=== PATIENT | male | born 1950 | race Caucasian/White ===

== ENCOUNTER → 2017-12-01 | Outpatient (CLI) | payer OTHER ==
[~2017-12-01] MED LIST: ALLO100T PO; ASPI81TA23 PO; BEDSIDE COMMODE1 MI1; CALCTAB33 PO; CINN500C2 PO; D31000CA3 PO; DOCU100C15 PO; FELO5TAB PO; FINA5TAB2 PO; GLIM2TAB PO; HYDR-2768 PO; HYDR-3580 PO; HYDR25TA5 PO; LOSA50TA PO; METO25 PO; METO25TA3 PO; MULTTAB4 PO; PRAV20TA2 PO; TAMS5CAP PO; TURM500C7 PO; WALKER WHEELS/F1 MIS
== END ==
LOC: CPRE 11:40
PROVIDERS: ATTEND Orthopaedic Surgery Orthopaedic Surgery of the Spine
DX: Z01.810 Encounter for preprocedural cardiovascular examination (principal); Z01.812 Encounter for preprocedural laboratory examination; M16.9 Osteoarthritis of hip, unspecified

== ENCOUNTER 2017-12-08 09:28 | Inpatient (IN) | payer OTHER, MEDICARE ==
[~2017-12-08] VITALS: Ht 177.8 cm; Wt 129.0 kg
[~2017-12-08 09:28] MED LIST changes: -BEDSIDE COMMODE1 MI1; -DOCU100C15 PO; -FELO5TAB PO; -HYDR-2768 PO; -HYDR-3580 PO; -METO25 PO; -WALKER WHEELS/F1 MIS
[2017-12-08] MEDS ORDERED: SODIUM CHLORID 0.9% 500 ML IV PRN (10:30)
[2017-12-08] MEDS ORDERED: CHLORHEXIDINE GLUCONATE 4% SOLN 120 ML BTL TOPICAL SCH (10:30)
[2017-12-08] MEDS ORDERED: INSULIN HUMAN REGULAR 1,000 UNITS/10 ML VIAL SQ PRN (10:30)
[2017-12-08] MEDS ORDERED: LACTATED RINGER'S 1000 ML IV PRN (10:30)
[2017-12-08] MEDS ORDERED: METOPROLOL TARTRATE 25 MG TAB PO PRN (10:30)
[2017-12-08] MEDS ORDERED: POVIDONE IODINE 5% (ANTISEPSIS KIT) 4 APPLICATIONS EACH NARE PRN (10:30)
[2017-12-08] MEDS ORDERED: VANCOMYCIN 1000 MG/NS 250 ML (for <70 kg) IV SCH ×2 (10:30)
[2017-12-08] MEDS ORDERED: ceFAZolin 2 GM PREMIX 50 ML IV SCH (10:30)
[2017-12-08] MEDS ORDERED: CHLORHEXIDINE GLUCONATE 2 % 1 PACK (2 CLOTHS) TOPICAL PRN (10:30)
[2017-12-08] MEDS ORDERED: ceFAZolin INJ 1,000 MG VIAL ONE (11:49)
[2017-12-08] MEDS ORDERED: GENTAMICIN SULFATE 80 MG/2 ML VIAL ONE (11:50)
[2017-12-08] MEDS ORDERED: GLYCOPYRROLATE 1 MG/5 ML SYRINGE IV PUSH ONE (12:00)
[2017-12-08] MEDS ORDERED: PHENYLEPH/NS 1000 MCG/10 ML SYR IV ONE (12:00)
[2017-12-08] MEDS ORDERED: ONDANSETRON HCL 4 MG/2 ML VIAL IV ONE (12:00)
[2017-12-08] MEDS ORDERED: LACTATED RINGER'S 1000 ML INJ 1,000 ML IV ONE (12:00)
[2017-12-08] MEDS ORDERED: PROPOFOL 200 MG/20 ML AMP IV ONE (12:00)
[2017-12-08] MEDS ORDERED: NEOSTIGMINE 5 MG/5 ML SYRINGE IV PUSH ONE (12:00)
[2017-12-08] MEDS ORDERED: ePHEDrine/NS 25 MG/5 ML SYRINGE IV ONE (12:00)
[2017-12-08] MEDS ORDERED: ROCURONIUM INJ 50 MG/5 ML SYRINGE IV PUSH ONE (12:00)
[2017-12-08] MEDS ORDERED: LIDOCAINE HCL 1% PF 5 ML SYRINGE OTHER ONE (12:00)
[2017-12-08] MEDS ORDERED: ACETAMINOPHEN 1000 MG/100 ML 100 ML IV ONE (12:45)
[2017-12-08] MEDS ORDERED: ONDANSETRON HCL 4 MG/2 ML VIAL IVP PRN (16:00)
[2017-12-08] MEDS ORDERED: Post-op Orders (for Pharmacy) XX ONE (16:00)
[2017-12-08] MEDS ORDERED: ACETAMINOPHEN/HYDROcodone 325 MG/7.5 MG TAB PO PRN (16:00)
[2017-12-08] MEDS ORDERED: ALUMINUM/MAGNESIUM/SIMETH 30 ML CUP PO PRN (16:00)
[2017-12-08] MEDS ORDERED: DO NOT ADM ANY ANTICOAGULANT DRUGS PRN (16:06)
[2017-12-08] MEDS ORDERED: BEDSIDE COMMODE1 MI1 (16:07)
[2017-12-08] MEDS ORDERED: WALKER WHEELS/F1 MIS (16:07)
[2017-12-08] MEDS ORDERED: MIDAZOLAM HCL 2 MG/2 ML VIAL ONE (16:07)
--- NOTE | 2017-12-08 16:09 | HHI.FF ---
Face to Face Verification Diagnosis: (1) Osteoarthritis of left hip Physical Therapy Gait training, Transfer training, bed to chair Hip: Total hip, Protocol: Left, Posterior hip precautions Right LE Weight Bearing: WB as tolerated Left LE Weight Bearing: WB as tolerated Nursing RN Days per Week: 3 x Week(s): 4 Nursing: Dressing changes (clean with alcohol and apply dry, sterile dressing ) Additional Instructions Aspirin 81 mg BID x 4 weeks for DVT prop I have seen patient Javier Baez on 12/08/17. My clinical findings support the need for the requested home health care services because: Deconditioned w/ increased weakness I certify that my clinical findings support that this patient is homebound because: Post-op weakness Jarrett Key MD Dec 08, 2017 16:09
[2017-12-08] MEDS ORDERED: PILL SPLITTER OTHER PRN (16:15)
[2017-12-08] MEDS ORDERED: *morphine SULFATE 10 MG/ML PERIprocedure ONLY ONE (16:45)
[2017-12-08] MEDS: LACTATED RINGER'S 1000 ML INJ 1,000 ML IV SCH (16:45)
--- NOTE | 2017-12-08 16:45 | RADRPT ---
EXAM DATE/TIME: 12/08/2017 16:19 [facility] COMPARISON: No previous studies available for comparison. INDICATIONS : Evaluate hardware placement left hip MEDICAL HISTORY : Arthritis. SURGICAL HISTORY : None. ENCOUNTER: Initial ACUITY: 1 day PAIN SCORE: 0/10 LOCATION: Left Hip FINDINGS: The pelvis itself is intact. There is a left total hip prosthesis arthroplasty in place well-seated w ith no dislocation. CONCLUSION: Left hip prosthesis in place well seated. Otherwise negative Donald Lim MD on December 08, 2017 at 16:42 Board Certified Radiologist. This report was verified electronically.
[2017-12-08] MEDS ORDERED: RESP: ALBUTEROL 2.5 MG/IPRATROPIUM 0.5 MG NEB (PRN) NEB (17:45)
--- NOTE | 2017-12-08 17:49 | PD.CONS ---
HPI Service [facility] Consult Requested By Orthopedic surgery Reason for Consult Medical management Primary Care Physician Matteo Solano MD Diagnoses: History of Present Illness 67 year-old man with a history of diabetes type 2, hypertension, severe left hip osteoarthritis who despite medical management including corticosteroid injection,NSAIDs and physical therapy continue to have severe left hip pain affecting his daily living of activity, including ambulation's was taking to the operating room today and underwent left hip replacement by orthopedic surgery. Patient was seen postoperatively in PACU, and denies any chest pain or shortness of breath. Vitals stable Review of Systems Except as stated in HPI: all other systems reviewed are Neg Past Family Social History Allergies: Coded Allergies: No Known Allergies (Verified Allergy, Unknown, 12/08/17) Past Medical History Left severe hip osteoarthritis Diabetes type 2 Hypertension Hyperlipidemia History of colon cancer Past Surgical History Left hip arthroplasty 12/08/17 Colostomy reversal Reported Medications Amaryl 2 mg daily Cozaar 50 mg daily Lopressor 12.5 mg twice a day Allopurinol Pravachol 20 mg at bedtime Flomax 0.4 mg daily Family History Noncontributory Social History Patient denies tobacco, alcohol or illicit drug intake Physical Exam Vital Signs Vital Signs Date Time Temp Pulse Resp B/P (MAP) Pulse Ox O2 Delivery O2 Flow Rate FiO2 12/08/17 16:06 97.4 74 16 124/78 (93) 100 Nasal Cannula 2 12/08/17 10:09 98.5 68 20 127/86 (100) 95 Physical Exam GENERAL: This is a well-nourished, well-developed patient, in no apparent distress. SKIN: No rashes, ecchymoses or lesions. Cool and dry. HEAD: Atraumatic. Normocephalic. No temporal or scalp tenderness. EYES: Pupils equal round and reactive. Extraocular motions intact. No scleral icterus. No injection or drainage. ENT: Nose without bleeding, purulent drainage or septal hematoma. Throat without erythema, tonsillar hypertrophy or exudate. Uvula midline. Airway patent. NECK: Trachea midline. No JVD or lymphadenopathy. Supple, nontender, no meningeal signs. CARDIOVASCULAR: Regular rate and rhythm without murmurs, gallops, or rubs. RESPIRATORY: Clear to auscultation. Breath sounds equal bilaterally. No wheezes , rales, or rhonchi. GASTROINTESTINAL: Abdomen soft, non-tender, nondistended. No hepato-splenomegaly , or palpable masses. No guarding. MUSCULOSKELETAL: Extremities without clubbing, cyanosis, or edema. Left hip repair, in brace-neurovascular intact NEUROLOGICAL: Awake and alert. Cranial nerves II through XII intact. Motor and sensory grossly within normal limits. Five out of 5 muscle strength in all muscle groups. Normal speech. Imaging Last Impressions Hip and Pelvis X-Ray 12/08/17 0000 Signed Impressions: Service Date/Time: Friday, December 08, 2017 16:19 - CONCLUSION: Left hip prosthesis in place well seated. Otherwise negative Donald Lim MD Assessment and Plan Assessment and Plan 67 year-old man with Left severe Hip osteoarthritis Status post left hip arthroplasty 12/08/17 Management per orthopedic surgery Continue current postop care including parenteral pain management. Monitor CBC in a.m. PT consult to treat and eval DVT prophylaxis per orthopedic surgery History of diabetes type 2 Continue Amaryl 2 mg daily Hypertension Continue Cozaar 50 mg daily, Lopressor 12.5 mg twice a day Monitor BMP in a.m. Hyperlipidemia On Pravachol 20 mg at bedtime Monitor LFTs in a.m. BPH Resume Flomax 0.4 mg daily DVT prophylaxis: Per orthopedic surgery Thank you for this consultation Code Status Full code Discussed Condition With Patient, PACU nurse Lamonte Cole MD Dec 08, 2017 17:48
--- NOTE | 2017-12-08 18:39 | HHI.PR ---
Immediate Post Op Note Procedure Date: Dec 08, 2017 Pre Op Diagnosis: L Hip OA Post Op Diagnosis: Same Surgeon: Jarrett Key MD Land Surveyor Assistant(s): Guerline Celeste PA-C Procedure: L THR Complications: None Specimen(s) removed: None Estimated blood loss: 400 cc Anesthesia: General Drains: None Patient to: PACU Implant/Devices: SEE IMPLANT LOG (if applicable) Date/Time of Procedure: SEE SURGICAL CARE RECORD Jarrett Key MD Dec 08, 2017 18:39
[2017-12-08 20:00] VITALS: BP 84/64; PULSE 98; RESP 15; TEMP 95.9; O2SAT 92
[2017-12-08] MEDS ORDERED: ASPIRIN EC 81 MG TABEC PO ONE (20:00)
[2017-12-08 20:18] VITALS: O2SAT 99
[2017-12-08] MEDS ORDERED: ZOLPIDEM TARTRATE 5 MG TAB PO PRN (21:00)
[2017-12-08] MEDS: METOPROLOL TARTRATE 25 MG TAB PO SCH (21:00)
[2017-12-08] MEDS ORDERED: ALLOPURINOL 100 MG TAB PO SCH (21:00)
[2017-12-08] MEDS ORDERED: PRAVASTATIN SOD 20 MG TAB PO SCH (21:00)
[2017-12-09] VITALS: BP 115/58; PULSE 99; RESP 15; TEMP 96.8; O2SAT 94
[2017-12-09 04:00] VITALS: BP 99/67; PULSE 100; RESP 15; TEMP 95.4; O2SAT 95
[2017-12-09] MEDS: LACTATED RINGER'S 1000 ML INJ 1,000 ML IV SCH (04:12)
[2017-12-09] MEDS: ACETAMINOPHEN/HYDROcodone 325 MG/7.5 MG TAB PO PRN ×2 (06:56→11:14)
--- NOTE | 2017-12-09 07:03 | PD.ORT.PN ---
Subjective Subjective Remarks POD#1 L THR Patient comfortablNo SOB;no chest pain Objective Vitals Vital Signs Date Time Temp Pulse Resp B/P (MAP) Pulse Ox O2 Delivery O2 Flow Rate FiO2 12/09/17 00:00 96.8 99 15 115/58 (77) 94 12/08/17 20:18 99 12/08/17 20:00 95.9 98 15 84/64 (71) 92 12/08/17 17:30 68 16 115/57 (76) 99 Room Air 12/08/17 17:00 60 16 128/61 (83) 98 Room Air 12/08/17 16:45 66 16 137/60 (85) 98 Room Air 12/08/17 16:30 62 16 108/58 (75) 100 12/08/17 16:15 66 16 116/60 (78) 100 Nasal Cannula 2 12/08/17 16:06 97.4 74 16 124/78 (93) 100 Nasal Cannula 2 12/08/17 10:09 98.5 68 20 127/86 (100) 95 I/O 12/08/17 12/08/17 12/08/17 12/09/17 12/09/17 12/09/17 07:00 15:00 23:00 07:00 15:00 23:00 Intake Total 1700 ml 1194 ml Output Total 1075 ml Balance 625 ml 1194 ml Intake IV Total 1700 ml 1194 ml Output Urine Total 675 ml Estimated Blood Loss 400 ml Objective Remarks N/V intact Neg tawnya's sign;no calf tenderness Dressings dry No LLD Assessment & Plan Assessment and Plan Ortho stable Discharge home today EC Aspirin 81 mg BIDx4 weeks,TEDS,Sequentials for DVT prophylaxsis PT,Rehab Jarrett Key MD Dec 09, 2017 07:03
[2017-12-09 07:50] VITALS: BP 100/67; PULSE 110; RESP 18; TEMP 98.2; O2SAT 93
[2017-12-09 08:56] LABS: HEMATOCRIT 35.9 % (39.0-51.0)
[2017-12-09] MEDS ORDERED: HYDROCHLOROTHIAZIDE 25 MG TAB PO SCH (09:00)
[2017-12-09] MEDS ORDERED: TAMSULOSIN HCL 0.4 MG CAP PO SCH (09:00)
[2017-12-09] MEDS ORDERED: ASPIRIN EC 81 MG TABEC PO SCH ×2 (09:00)
[2017-12-09] MEDS ORDERED: GLIMEPIRIDE 2 MG TAB PO SCH (09:00)
[2017-12-09] MEDS: METOPROLOL TARTRATE 25 MG TAB PO SCH (09:00)
[2017-12-09] MEDS ORDERED: FINASTERIDE 5 MG TAB PO SCH (09:00)
[2017-12-09] MEDS ORDERED: LOSARTAN 50 MG TAB PO SCH (09:00)
[2017-12-09 09:25] LABS: ALBUMIN 3.4 GM/DL (3.4-5.0); AST (GOT) 13 U/L (15-37); BICARBONATE 20.3 MEQ/L (21.0-32.0); BLOOD UREA NITROGEN 29 MG/DL (7-18); CALCIUM 8.5 MG/DL (8.5-10.1); CHLORIDE 101 MEQ/L (98-107); CREATININE 1.75 MG/DL (0.60-1.30); GLOMERULAR FILTRATION RATE 39 ML/MIN (>89); GLUCOSE,RANDOM 213 MG/DL (74-106); SODIUM (NA) 134 MEQ/L (136-145)
[2017-12-09 09:26] LABS: ALT (GPT) 16 U/L (12-78)
[2017-12-09 09:28] LABS: ALKALINE PHOSPHATASE 73 U/L (45-117); TOTAL BILIRUBIN ADULT 1.3 MG/DL (0.2-1.0); TOTAL PROTEIN 7.1 GM/DL (6.4-8.2)
[2017-12-09 11:21] VITALS: O2SAT 94
--- NOTE | 2017-12-09 11:50 | HHI.PR ---
Subjective Remarks Doing well postop. Orthopedic Surgery has cleared patient for discharge. Patient has no new complaints. Objective Vital Signs Date Time Temp Pulse Resp B/P (MAP) Pulse Ox O2 Delivery O2 Flow Rate FiO2 12/09/17 11:21 94 21 12/09/17 07:56 16 12/09/17 07:50 98.2 110 18 100/67 (78) 93 12/09/17 04:00 95.4 100 15 99/67 (78) 95 12/09/17 00:00 96.8 99 15 115/58 (77) 94 12/08/17 20:18 99 12/08/17 20:00 95.9 98 15 84/64 (71) 92 12/08/17 17:30 68 16 115/57 (76) 99 Room Air 12/08/17 17:00 60 16 128/61 (83) 98 Room Air 12/08/17 16:45 66 16 137/60 (85) 98 Room Air 12/08/17 16:30 62 16 108/58 (75) 100 12/08/17 16:15 66 16 116/60 (78) 100 Nasal Cannula 2 12/08/17 16:06 97.4 74 16 124/78 (93) 100 Nasal Cannula 2 I/O 12/08/17 12/08/17 12/08/17 12/09/17 12/09/17 12/09/17 07:00 15:00 23:00 07:00 15:00 23:00 Intake Total 1700 ml 1914 ml Output Total 1075 ml Balance 625 ml 1914 ml Intake Oral 720 ml IV Total 1700 ml 1194 ml Output Urine Total 675 ml Estimated Blood Loss 400 ml # Voids 3 Result Diagram: 12/09/1718 12/09/17 0718 Objective Remarks GENERAL: NAD, A&Ox3 HEAD: Normocephalic. NECK: Supple, trachea midline. No lymphadenopathy. EYES: No scleral icterus. No injection or drainage. CARDIOVASCULAR: Regular rate and rhythm without murmurs, gallops, or rubs. RESPIRATORY: Breath sounds equal bilaterally. No accessory muscle use. GASTROINTESTINAL: Abdomen soft, non-tender, nondistended. MUSCULOSKELETAL: No cyanosis, or edema. Bandage at left hip SKIN: Warm and dry. NEURO: No focal neurological deficitis. A/P Problem List: (1) Osteoarthritis of left hip ICD Code: M16.12 - Unilateral primary osteoarthritis, left hip Assessment and Plan 67 year-old man admitted secondary to left hip osteoarthritis, now status post left hip arthroplasty Status post left hip arthroplasty Osteoarthritis Continue pain treatments as needed Continue PT as an outpatient Medically clear for discharge Hemoglobin level has been stable Outpatient follow-up with orthopedics Diabetes mellitus type 2 Resume home treatments at discharge Hypertension Continue Cozaar 50 mg daily Lopressor 12.5 mg twice a day Hyperlipidemia Pravachol 20 mg at bedtime Follow LFTs as an outpatient BPH Flomax 0.4 mg daily DVT prophylaxis Per orthopedic surgery Discharge planning Medically clear for discharge Problem Qualifiers (1) Osteoarthritis of left hip: Qualified Codes: M16.12 - Unilateral primary osteoarthritis, left hip Keny Sosa MD Dec 09, 2017 11:50
[2017-12-09] MEDS ORDERED: DOCU100C15 PO (11:53)
[2017-12-09] MEDS ORDERED: HYDR-3580 PO (11:53)
[2017-12-09 11:55] VITALS: BP 98/56; PULSE 104; RESP 18; TEMP 97.4; O2SAT 93
--- NOTE | 2017-12-09 14:25 | MP ---
cc: FRANK PATTON,GRACE Butler M.D. DATE OF SURGERY December 08, 2017 PREOPERATIVE DIAGNOSES 1. Left hip severe osteoarthritis. 2. Morbid obesity. POSTOPERATIVE DIAGNOSES 1. Left hip severe osteoarthritis. 2. Morbid obesity. PROCEDURE Left total hip arthroplasty. SURGEON Zain Key MD ASSESSMENT Guerline Celeste PA-C ANESTHESIA General. ESTIMATED BLOOD LOSS 400 cc COMPLICATIONS None. DRAINS None. PLAN OF ACTIVITIES See chart. SPECIMEN None. PROCEDURE My delinquent tax collection assistant, Guerline Celeste PA-C, was present for the entire surgical case. She was medically necessary for the entire case because of the complexity of the case and to facilitate the performance of the procedure. The SENIOR WIND TURBINE TECHNICIAN at the back table was not of the skill set for this case, to manipulate the instruments e.g. the multiple different types of soft tissue retractors, trial implants and permanent implants. The patient was brought into the operating room and had satisfactory general endotracheal anesthesia by Dr. Amaury Medeiros of the Department of Anesthesia. The patient was placed in the lateral decubitus position. Because of the patient's morbid obesity, great care was taken to protect all pressure points. The left hip and lower extremity were prepped and draped in the usual sterile manner. Posterior lateral exposure to the hip was made. All bleeders were coagulated. Dissection was carried through the skin and subcutaneous tissue. The fascia keli and gluteus jose was incised in line with the skin incision. A Charnley retractor was placed into the wound in order to allow better exposure. Great care was taken to protect the sciatic nerve throughout the entire operative procedure. The short external rotators starting from the piriformis tendon, superior and inferior glamellui muscles, obturator internus and quadriceps femoris tendons were then removed off of the posterior aspect of the hip. Capsulotomy was performed. The hip was then dislocated posteriorly. Osteotomy was made on the neck at the appropriate level. Exposure of the acetabulum was made. The hip capsule and labrum was surgically excised. Using the hemispherical reamers, the acetabulum was repaired. Using hemispherical reamers, reamed sequentially up to 55 mm in outer diameter. The 55 mm trial bicentric cup was placed in Press-Fit type manner, found to be stable and satisfactory. 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 Rongeur and curved osteotomes were then used to remove the osteophytes off the acetabulum. Attention was now turned to the femur. Using the Biomet Taperloc system, it was sequentially broached to a #14 broach. Trial reduction was made with a standard-offset, 0 neck, 28-mm ball. The hip was reduced. The patient was found to have satisfactory limb length, satisfactory stability and satisfactory and improved range of motion. The hip was then again dislocated posteriorly. All trial components were removed and preparation was made for insertion of the implant. Using the Biomet Taperloc stem in approximately 15 degrees anteversion, 14 standard offset was then placed in satisfactory position with an excellent "fit and fill". A 0-neck, 28-mm ball was then assembled onto the trunnion. The hip was again reduced. Again the patient was found to have satisfactory limb length, satisfactory stability and satisfactory range of motion. The wound was irrigated with copious amounts of sterile saline antibiotic solution. The short external rotators were repaired back to the greater trochanter with drill holes using #2 Ticron suture. The fascia keli and gluteus jose was closed in line with #2 Ticron sutures. The subcutaneous tissue was closed in layers with 0 Vicryl and 2-0 Vicryl. The skin was approximated with running subcuticular 2-0 nylon stitch. Sterile dressings were applied. The patient tolerated the procedure well and arrived in the recovery room in stable and satisfactory condition. MD FÉLIX Ulloa/JOSE /3:46 PM /9:20 AM
[2017-12-09] MEDS ORDERED: DOCUSATE SODIUM 100 MG CAP PO SCH (21:00)
== END 2017-12-09 14:20 | disposition home health service (06) | DRG 470 ==
LOC: HSDI 09:28 → N06B 18:21
PROVIDERS: ADMIT Orthopaedic Surgery Orthopaedic Surgery of the Spine; ATTEND Orthopaedic Surgery Orthopaedic Surgery of the Spine
PROC: 0SRB0JA Replacement of Left Hip Joint with Synthetic Substitute, Uncemented, Open Approach (ICD-10-PCS; principal; 2017-12-08 13:41)
DX: M16.12 Unilateral primary osteoarthritis, left hip (principal); E66.01 Morbid (severe) obesity due to excess calories; I10 Essential (primary) hypertension; E11.9 Type 2 diabetes mellitus without complications; E78.5 Hyperlipidemia, unspecified; N40.0 Benign prostatic hyperplasia without lower urinary tract symptoms; Z79.84 Long term (current) use of oral hypoglycemic drugs; Z85.038 Personal history of other malignant neoplasm of large intestine
CPT/HCPCS: 73501; 80053; 85014; 85018; 86850; 86900; 86901; 86920; 94150; C1776; J0131; J0690; J1580; J2250; J2270; J2370; J2405; J2710; J3010; J7120; L1830